=== PATIENT | female | born 1940 | race Caucasian/White ===

== ENCOUNTER → 2017-09-09 | Outpatient (CLI) | payer MEDICARE | LOC: COL.PUL 13:00 | DX: R06.02 Shortness of breath (principal); Z87.891 Personal history of nicotine dependence ==

== ENCOUNTER 2017-09-15 10:59 | Day surgery (SDC) | payer MEDICARE ==
[~2017-09-15] VITALS: Ht 177.8 cm; Wt 66.2 kg
[2017-09-15] VITALS (7 sets, daily range): BP systolic 109–133; BP diastolic 51–72; PULSE 60–71; TEMP 97.5–97.6
[2017-09-15 11:40] LABS: HEMATOCRIT 39.6 % (37.0-47.0); MEAN CELL VOLUME 92 fl (80.0-100.0); MEAN CORPUSCULAR HEMOGLOBIN 30 pg (27.0-31.0); MEAN CORPUSCULAR HGB CONC 33 g/dl (33.0-37.0); MEAN PLATELET VOLUME 11.2 fl (7.4-10.4); PLATELET COUNT 229 K/mm3 (130-400); REDCELL DISTRIBUTION WIDTH-CV 14.8 % (11.5-14.5)
[2017-09-15 11:44] LABS: INR 2.4 (0.8-3.0); PROTHROMBIN TIME 27.4 SECONDS (9.7-12.8)
[2017-09-15 11:50] LABS: CALCIUM 9.9 mg/dL (8.4-10.2); CREATININE, serum 1.1 mg/dL (0.52-1.25); POTASSIUM 3.4 mmol/L (3.4-5.0)
[2017-09-15] MEDS ORDERED: GLUCOSAMINE & C1 TAB PO (12:02)
[2017-09-15] MEDS ORDERED: VITAMIN C500 MG PO (12:03)
[2017-09-15] MEDS ORDERED: OYSTERCAL-D 5001 TAB PO (12:04)
[2017-09-15] MEDS ORDERED: DUO-KAPS1 CAP PO (12:05)
[2017-09-15] MEDS ORDERED: EPA FISH OIL1 SGL PO (12:05)
[2017-09-15] MEDS ORDERED: SOYA LECITHIN1200 MG PO (12:06)
[2017-09-15] MEDS ORDERED: NATURAL E400 IU PO (12:08)
[2017-09-15] MEDS ORDERED: VITAMIN B-6100 MG PO (12:09)
[2017-09-15] MEDS ORDERED: B-121000 MCG PO (12:10)
[2017-09-15] MEDS ORDERED: PHARMASSURE ZIN50 MG PO (12:10)
[2017-09-15] MEDS ORDERED: MASON NATURAL2000 IU PO (12:11)
[2017-09-15] MEDS ORDERED: ECHINACEA400 MG PO (12:12)
[2017-09-15] MEDS ORDERED: ORIGANUM OIL 1 M1 ML PO (12:13)
[2017-09-15 12:20] LABS: THYROID STIMULATING HORMONE 1.12 uIU/mL (0.465-4.680)
[2017-09-15] MEDS ORDERED: NATURAL POTASS595 MG PO (12:37)
[2017-09-15] MEDS ORDERED: ZANAFLEX 4MG TAB4 MG PO (12:37)
[2017-09-15] MEDS ORDERED: NORVASC 10MG10 MG PO (12:38)
[2017-09-15] MEDS ORDERED: COREG 25MG25 MG/TAB PO (12:38)
[2017-09-15] MEDS ORDERED: LOTENSIN20 MG PO (12:39)
[2017-09-15] MEDS ORDERED: HCTZ 25MG TAB25 MG PO (12:39)
[2017-09-15] MEDS ORDERED: VALIUM 5MG T5 MG/TAB PO (12:39)
[2017-09-15] MEDS ORDERED: XARELTO20 MG PO (12:40)
[2017-09-15] MEDS ORDERED: FLONASE SENSIM9.9 ML NS (12:40)
[2017-09-15] MEDS ORDERED: LASIX 20MG TABL20 MG PO (12:41)
[2017-09-15] MEDS ORDERED: CORDARONE200 MG/TAB PO (16:41)
[2017-09-15] MEDS ORDERED: PACERONE400 MG PO (16:41)
== END 2017-09-15 17:46 | disposition home or self-care (01) ==
LOC: COL.CAR 10:59
PROVIDERS: Internal Medicine Interventional Cardiology
DX: I48.0 Paroxysmal atrial fibrillation (principal); I10 Essential (primary) hypertension; R60.0 Localized edema; E78.5 Hyperlipidemia, unspecified; I25.10 Atherosclerotic heart disease of native coronary artery without angina pectoris; Z88.2 Allergy status to sulfonamides; Z88.5 Allergy status to narcotic agent; Z79.01 Long term (current) use of anticoagulants; Z79.51 Long term (current) use of inhaled steroids; Z95.0 Presence of cardiac pacemaker; Z87.891 Personal history of nicotine dependence
CPT/HCPCS: J2704

== ENCOUNTER 2018-03-30 13:43 | Observation (INO) | payer MEDICARE | END 2018-04-01 12:45 | disposition home or self-care (01) | LOC: MEDICAL 13:43 | PROVIDERS: ADMIT Internal Medicine Interventional Cardiology | DX: I11.0 Hypertensive heart disease with heart failure (principal); I50.30 Unspecified diastolic (congestive) heart failure; D50.0 Iron deficiency anemia secondary to blood loss (chronic); I48.0 Paroxysmal atrial fibrillation; Z79.899 Other long term (current) drug therapy; I08.1 Rheumatic disorders of both mitral and tricuspid valves; Z95.0 Presence of cardiac pacemaker; J44.9 Chronic obstructive pulmonary disease, unspecified; E78.5 Hyperlipidemia, unspecified; I25.10 Atherosclerotic heart disease of native coronary artery without angina pectoris; Z82.49 Family history of ischemic heart disease and other diseases of the circulatory system ==

== ENCOUNTER 2019-10-27 11:45 | Inpatient (IN) | payer MEDICARE ==
[~2019-10-27] VITALS: Ht 147.3 cm; Wt 72.3 kg
[2019-10-27] VITALS (11 sets, daily range): BP systolic 90–132; BP diastolic 32–70; PULSE 60–117; TEMP 97.6–99.2
[~2019-10-27 11:45] MED LIST: B-121000 MCG PO; CORDARONE200 MG/TAB PO; COREG 25MG25 MG/TAB PO; DUO-KAPS1 CAP PO; ECHINACEA400 MG PO; EPA FISH OIL1 SGL PO; FERROUS GL325 MG/TAB PO; FLONASE SENSIM9.9 ML NS; GLUCOSAMINE & C1 TAB PO; HCTZ 25MG TAB25 MG PO; LASIX 20MG TABL20 MG PO; LOTENSIN20 MG PO; MASON NATURAL2000 IU PO; NATURAL E400 IU PO; NATURAL POTASS595 MG PO; NORVASC 10MG10 MG PO; ORIGANUM OIL 1 M1 ML PO; OYSTERCAL-D 5001 TAB PO; PACERONE400 MG PO; PHARMASSURE ZIN50 MG PO; SOYA LECITHIN1200 MG PO; VALIUM 5MG T5 MG/TAB PO; VITAMIN B-6100 MG PO; VITAMIN C500 MG PO; XARELTO20 MG PO; ZANAFLEX 4MG TAB4 MG PO
[2019-10-27] MEDS ORDERED: DEMADEX 20MG20 M1 PO (14:12)
--- NOTE | 2019-10-27 15:00 | NUR ---
Assessment completed, alert/oriented, vital signs stable/ slightly elevated temp at 99.2, patient has constant 7/10 pain to left buttock which is where abscess is located, areas is red/swollen and warm to touch, no open areas or drainage noted, heart irregular/ Hx of a.fib, lungs CTA/ no resp.difficulty, notified hospitalist of her arrival to the floor, also notified, patient has INT that was placed to left wrist in [facility]
--- NOTE | 2019-10-27 15:50 | NUR ---
Vancomycin Initial Dosing Pharmacy Note Ordering provider: Leonel Chinchilla MD Indication/duration: Skin/Soft tissue infection, 7 days LABS: SCr 1.7, CrCl~21, GFR 29 Recommendation: Will start Vancomcyin 1 gm IV q24h. Pharmacy will continue to closely monitor and check a Vancomycin trough on 10/30/19. Maintenance dose: 1 gram every 24 hours Trough goal: 10-15 ug/mL
--- NOTE | 2019-10-27 16:35 | NUR ---
Patient is going down to OR at this time for IND of left buttock abscess, consent is signed, discussed plan of care with and son over the phone
--- NOTE | 2019-10-27 18:15 | NUR ---
Patient arrived back to room 346 from PACU at this time, she is drowsy but alert/oriented, vital signs stable, pain free at this time, will continue to monitor, she is taking sips of water without any issues
--- NOTE | 2019-10-27 19:17 | NUR ---
patient continues to do well post-op, she is taking PO intake and pain is controlled, vitals remain stable, report given to night nurse Sadaf at the bedside
--- NOTE | 2019-10-27 20:00 | NUR ---
ASSISTED TO BSC FOR VOID. DRSG TO LEFT BUTTOCK REMOVED, DRAINAGE PRESENT. PACKING INTACT TO WOUND. REPLACED DRSG OF 4X4'S AND ABD WHEN PATIENT STANDS UP. PLACED ATTENDS ON PATIENT FOR OCC INCONTINENCE OF URINE. LEFT BUTTOCK RED AND EDEMATOUS. ONCE BACK TO BED PT TAKES TYLENOL FOR COMFORT. DRINKING ICE WATER AND OJ. DOES NOT WANT FOOD AT THIS TIME.
--- NOTE | 2019-10-28 00:05 | NUR ---
ASSISTED TO BSC WITH ONE ASSIST AND WALKER, TRANSFERS BETTER THIS TIME. DRSG TO LEFT BUTTOCK CHANGED, PACKING LEFT IN PLACE, REPLACED 4X4'S AND ABD. BACK TO BED AFTER VOIDING. IVF AND IV ANTIBIOTIC INFUSING.
[2019-10-28 00:45] VITALS: BP 99/41; PULSE 67; TEMP 98.5
[2019-10-28 04:14] VITALS: BP 107/43; PULSE 59; TEMP 97.6
--- NOTE | 2019-10-28 05:40 | NUR ---
ASSISTED TO BSC WITH WALKER AND ONE ASSIST. DRESSING TO LEFT BUTTOCK WITH MODERATE SEROSANGUNIOUS DRAINAGE, REMOVED AND CHANGED AFTER PT FINISHED VOIDING. BACK TO BED WITH ASSIST.
[2019-10-28 06:26] LABS: MEAN CELL VOLUME 99 fl (80.0-100.0); MEAN CORPUSCULAR HGB CONC 33 g/dl (33.0-37.0); MEAN PLATELET VOLUME 12.1 fl (7.4-10.4); PLATELET COUNT 228 K/mm3 (130-400); RED BLOOD COUNT 2.84 M/mm3 (4.10-5.30); REDCELL DISTRIBUTION WIDTH-CV 15.7 % (11.5-14.5)
[2019-10-28 06:47] LABS: HEMOGLOBIN 9.1 g/dl (12.5-16.0); MEAN CORPUSCULAR HEMOGLOBIN 32 pg (27.0-31.0)
[2019-10-28 06:50] LABS: CALCIUM 8.4 mg/dL (8.4-10.2); CREATININE, serum 1.59 (0.52-1.25); MAGNESIUM 2.4 mg/dL (1.6-2.3); POTASSIUM 3.8 mmol/L (3.4-5.0)
[2019-10-28 07:35] LABS: BAND 23 % (0-10); LYMPHOCYTE 5 % (20.0-51.0); METAMYELOCYTE 2 % (0-0); NEUTROPHILS 70 % (42.0-75.2); PLATELET ESTIMATE NORMAL (NORMAL)
[2019-10-28 08:17] VITALS: BP 115/39; PULSE 59; TEMP 98.7
--- NOTE | 2019-10-28 10:03 | NUR ---
SW met with patient to complete intake. Patient provides that she lives in [place], [place] with her Rohith [phone]. Patient states that she utilizes a 4 wheel walker at home. One that she can sit down and rest on when she needs to. Patient provides that she is independing with ADL's, her PCP is Dr. Casie Ventura, pharmacy is [facility], and tyhat she is able to afford her medications at this time. Patient provides that she has a document at her home that states her Rohith is her DPOA-HC. Patient states that she will ask to bring in document, but does not know if he will be able to find it. Patient states that she already has home health services set up for PT/OT that will be coming to her home 2 times per month. She could not remember the name of the agency, but provides it could be [facility]. SW provided that the SW team will follow with her upon discharge to ensure updates are sent to the agency. Patient provides that she does not have any concerns on DCing home when that time comes. SW will continue to follow.
--- NOTE | 2019-10-28 11:30 | NUR ---
Assessment completed, alert/oriented, vital signs stable/ afebrile, pain /10 but is only using tylenol to treat, lungs are a little diminished today and patient feels she is a little 'raspy' today / CXR ordered by hospitalist to eval lungs, heart RRR, distal pulses are palapble, has been by evalaute wound/ we have changed dressing, she has been up ambulating, tolerating regular diet well, she is now up with PT and doing well, I ahve spoke to on the phone
[2019-10-28 12:07] VITALS: BP 108/44; PULSE 62; TEMP 98.7
[2019-10-28 17:08] VITALS: BP 112/52; PULSE 68; TEMP 98.4
[2019-10-28 19:20] VITALS: BP 103/54; PULSE 60; TEMP 98.5
--- NOTE | 2019-10-28 22:48 | NUR ---
UP TO BATHROOM WITH ASSIST AND WALKER. HAS SMALL SOFT STOOL AND VOIDS. BRUSHES TEETH AND ASSISTED TO BED. SL TO LEFT FOREARM WITHOUT REDNESS OR SWELLING. DRESSING CHANGED TO LEFT BUTTOCK, MODERATE DRAINAGE NOTED, BUTTOCK LESS RED BUT REMAINS HARD TO TOUCH.
--- NOTE | 2019-10-29 | NUR ---
PT REQUESTS ZANAFLEX FOR MUSCLE ACHE. DOSE GIVEN. IV ANTIBIOTIC CONNECTED AND HEPARIN SQ GIVEN.
[2019-10-29 00:10] VITALS: BP 96/49; PULSE 68; TEMP 97.6
[2019-10-29 03:16] VITALS: BP 106/60; PULSE 58; TEMP 98.1
--- NOTE | 2019-10-29 03:18 | NUR ---
Up to bathroom, voids and back to bed. Drsg to left buttock changed.
[2019-10-29 07:24] VITALS: BP 107/37; PULSE 64; TEMP 97.8
--- NOTE | 2019-10-29 08:50 | NUR ---
Sitting up in bed. Alert and oriented x4. Patient had been up to bathroom and some of the dressing had come out of her I&D site to left buttocks. Rates pain Rates pain in left buttocks 2/10, describes as tender. Patient denies any additional needs or concerns at this time.
[2019-10-29 09:23] LABS: MEAN CELL VOLUME 99 fl (80.0-100.0); MEAN CORPUSCULAR HGB CONC 32 g/dl (33.0-37.0); PLATELET COUNT 273 K/mm3 (130-400); RED BLOOD COUNT 3.08 M/mm3 (4.10-5.30); REDCELL DISTRIBUTION WIDTH-CV 15.7 % (11.5-14.5)
[2019-10-29 09:27] LABS: CALCIUM 8.9 mg/dL (8.4-10.2); CREATININE, serum 1.69 (0.52-1.25)
[2019-10-29 09:42] LABS: HEMATOCRIT 30.5 % (37.0-47.0); HEMOGLOBIN 9.8 g/dl (12.5-16.0); MEAN CORPUSCULAR HEMOGLOBIN 32 pg (27.0-31.0)
--- NOTE | 2019-10-29 10:25 | NUR ---
Gambling Counsellor contacted Naomi from [facility]. She reports they received the original referral from [facility]. They can accept the patient for [facility]. HANNAH faxed updates to Naomi. Will continue to monitor.
--- NOTE | 2019-10-29 10:50 | NUR ---
Hack Driver attended clinical rounds with the team. The patient is currently on IV antibiotics. Will continue to follow.
[2019-10-29 11:02] LABS: BAND 1 % (0-10); LYMPHOCYTE 5 % (20.0-51.0); METAMYELOCYTE 1 % (0-0); NEUTROPHILS 88 % (42.0-75.2)
[2019-10-29 11:04] LABS: BURR CELLS 1+; PLATELET ESTIMATE NORMAL (NORMAL)
[2019-10-29 11:06] LABS: TEAR DROP CELLS 1+
[2019-10-29 11:13] VITALS: BP 114/44; PULSE 64; TEMP 97.6
[2019-10-29 16:15] VITALS: BP 129/60; PULSE 56; TEMP 97.7
--- NOTE | 2019-10-29 17:05 | NUR ---
Sitting up in chair watching TV. was at bedside but leaving for the night. Denies pain at this time, Denies additional needs.
[2019-10-29 20:59] VITALS: BP 107/44; PULSE 65; TEMP 98
--- NOTE | 2019-10-29 22:30 | NUR ---
ASSISTED TO BATHROOM, DRSG TO LEFT BUTTOCK REMOVED. HAS PURULENT DRAINAGE COMING FROM WOUND, ADILSON HAVE BEEN REMOVED. BUTTOCK IS SIGNIFICANTLY LESS RED, STILL HAS INDURATED AREA FROM LOWER LEFT BUTTOCK INTO POSTERIOR LEFT INNER THIGH. SL TO LEFT FOREARM WITHOUT REDNESS OR SWELLING. SCATTERED BRUISES TO ABD FROM HEPARIN INJECTIONS. BACK TO BED AFTER VOIDING, NEW DRSG OF 4X4'S AND ABD APPLIED TO LEFT BUTTOCK WOUND.
[2019-10-30] VITALS (7 sets, daily range): BP systolic 101–153; BP diastolic 37–46; PULSE 60–75; TEMP 97.4–98.8
--- NOTE | 2019-10-30 03:45 | NUR ---
PT UP TO BATHROOM, VOIDS AND HAS SMALL STOOL. DRESSING REPLACED TO LEFT BUTTOCK WOUND, WAS ABLE TO EXPRESS MODERATE AMOUNT OF PURULENT DRAINAGE FROM WOUND. REMAINS ON SLOW IV ANTIBIOTIC.
--- NOTE | 2019-10-30 06:00 | NUR ---
PT UP TO BATHROOM, DRSG WITH PURULENT DRAINAGE. VOIDS 300CC, NEW 4X4'S AND ABD PLACED OVER LEFT BUTTOCK WOUND. BACK TO BED.
[2019-10-30 09:02] LABS: HEMOGLOBIN 10.1 g/dl (12.5-16.0); MEAN CELL VOLUME 100 fl (80.0-100.0); MEAN CORPUSCULAR HEMOGLOBIN 32 pg (27.0-31.0); MEAN CORPUSCULAR HGB CONC 32 g/dl (33.0-37.0); MEAN PLATELET VOLUME 11.9 fl (7.4-10.4); PLATELET COUNT 308 K/mm3 (130-400); RED BLOOD COUNT 3.14 M/mm3 (4.10-5.30); REDCELL DISTRIBUTION WIDTH-CV 15.8 % (11.5-14.5)
[2019-10-30 09:13] LABS: HEMATOCRIT 31.3 % (37.0-47.0)
[2019-10-30 09:22] LABS: CALCIUM 8.9 mg/dL (8.4-10.2); CREATININE, serum 1.53 (0.52-1.25)
[2019-10-30 10:12] LABS: BAND 17 % (0-10); BASOPHIL 1 % (0-2); EOSINOPHIL 1 % (0-4); LYMPHOCYTE 5 % (20.0-51.0); PLATELET ESTIMATE NORMAL (NORMAL)
[2019-10-30 10:13] LABS: NEUTROPHILS 72 % (42.0-75.2)
--- NOTE | 2019-10-30 11:00 | NUR ---
First visit from the sales support manager. No needs right now.
--- NOTE | 2019-10-30 11:42 | NUR ---
Patient ambulating in [place] with PT
--- NOTE | 2019-10-30 19:45 | NUR ---
Patient has done well throughout the day. Continues to have purulent drainge from abcess site. Dressing changed throughout the day. INT to left forarm without complications. Has been up to restroom multiple times throughout the day. Spouse at bedside this afternoon. Denies further needs at this time. Will report off to senior java developer.
[2019-10-31 03:52] VITALS: BP 134/37; PULSE 62; TEMP 98.3
--- NOTE | 2019-10-31 05:26 | NUR ---
Patient has rested well throughout the night. Denies pain. Ambulates to the restroom with 1 assist from staff. Dressing appears to have fallen off in the night. New dressing applied to left buttock. New dressing consists of 4x4 gauze and ABD pad and patient has mesh panties on top of that. Small amount of purulent drainage noted to wound. INT to left forearm. Patient continues to have bilateral lower extremity edema. Patient is alert and oriented and pleasant with staff. Continues on IV antibiotics as prescribed. Will continue to monitor patient.
--- NOTE | 2019-10-31 06:50 | NUR ---
Assist patient into bathroom. Gait slow but steady. Remove dressing from left buttocks. Purulent discharge noted on dressing. Left buttcock red, tender when touched. Patient voids and has small BM. Assisted in pericare, apply new abd and patient assisted into chair in room. Breakfast tray set up for patient. Patient denies pain. Denies any additional needs or concerns.
[2019-10-31 08:07] VITALS: BP 136/41; PULSE 64; TEMP 97.5
[2019-10-31 09:14] LABS: HEMOGLOBIN 10.6 g/dl (12.5-16.0); MEAN CELL VOLUME 98 fl (80.0-100.0); MEAN CORPUSCULAR HEMOGLOBIN 32 pg (27.0-31.0); MEAN CORPUSCULAR HGB CONC 33 g/dl (33.0-37.0); MEAN PLATELET VOLUME 11.5 fl (7.4-10.4); PLATELET COUNT 373 K/mm3 (130-400); RED BLOOD COUNT 3.33 M/mm3 (4.10-5.30); REDCELL DISTRIBUTION WIDTH-CV 15.5 % (11.5-14.5)
[2019-10-31 09:19] LABS: HEMATOCRIT 32.6 % (37.0-47.0)
[2019-10-31 09:28] LABS: CALCIUM 9.1 mg/dL (8.4-10.2); CREATININE, serum 1.23 (0.52-1.25); POTASSIUM 3.9 mmol/L (3.4-5.0)
[2019-10-31 10:09] LABS: BAND 9 % (0-10); EOSINOPHIL 2 % (0-4); LYMPHOCYTE 12 % (20.0-51.0); METAMYELOCYTE 3 % (0-0); MYELOCYTE 3 % (0-0); NEUTROPHILS 69 % (42.0-75.2); PLATELET ESTIMATE NORMAL (NORMAL)
[2019-10-31 11:16] VITALS: BP 129/38; PULSE 66; TEMP 97.3
--- NOTE | 2019-10-31 11:29 | NUR ---
Sitting up in chair watching TV and looking at ipad. Denies pain or any needs or concerns at this time.
--- NOTE | 2019-10-31 15:07 | NUR ---
Direct Casting Operator met with the patient to revisit the discharge plan. The patient plans to return home with [facility]. SW discussed options for IV antibiotics, if needed. She is hoping they will all be oral at discharge. She has no other questions or concerns at this time.
[2019-10-31 15:59] VITALS: BP 129/55; PULSE 65; TEMP 97.5
--- NOTE | 2019-10-31 16:18 | NUR ---
Delivery Room Supervisor faxed updates to [employer] MAKE UP OPERATOR.
--- NOTE | 2019-10-31 17:03 | NUR ---
Sitting in chair with eyes open. Mimimal pain in buttocks at this time. Patient says that she is tired from all the activity that she has done today. Patient denies needs at this time.
[2019-10-31 19:35] VITALS: BP 128/37; PULSE 61; TEMP 98.3
[2019-10-31 20:00] VITALS: BP 136/52
--- NOTE | 2019-10-31 20:00 | NUR ---
Report received, assumed care for maintenance technician 2nd shift. Assessment complete. VS stable. A&Ox3. Denies pain/nausea/shortness of breath. Dressing to left buttock-wet/dry-ABD covering. INT to left forearm flushes without difficulty. Plan of care discussed for this shift to include calling for needs/pain meds. Verbalizes understanding/denies questions/cocnerns. Call light in reach. Will monitor.
[2019-11-01] VITALS (8 sets, daily range): BP systolic 128–152; BP diastolic 31–52; PULSE 60–66; TEMP 97.2–98
--- NOTE | 2019-11-01 04:25 | NUR ---
Rested off and on this shift. Denied need for pain medications. Denies nausea/shortness of breath. VS remained stable. Tolerating PO. VOiding without difficulty. Left buttock wound with purulent drainage to ABD. Denies current needs. Call light in reach. Will monitor.
[2019-11-01 08:02] LABS: PATHOLOGY DIFF REVIEW OK
[2019-11-01 08:22] LABS: HEMOGLOBIN 10.1 g/dl (12.5-16.0); MEAN CELL VOLUME 98 fl (80.0-100.0); MEAN CORPUSCULAR HEMOGLOBIN 32 pg (27.0-31.0); MEAN CORPUSCULAR HGB CONC 33 g/dl (33.0-37.0); MEAN PLATELET VOLUME 11.6 fl (7.4-10.4); PLATELET COUNT 360 K/mm3 (130-400); RED BLOOD COUNT 3.16 M/mm3 (4.10-5.30); REDCELL DISTRIBUTION WIDTH-CV 15.3 % (11.5-14.5)
[2019-11-01 08:36] LABS: HEMATOCRIT 30.9 % (37.0-47.0)
[2019-11-01 08:47] LABS: C-REACTIVE PROTEIN 7.2 mg/dL (0.0-0.9); CALCIUM 8.8 mg/dL (8.4-10.2); CREATININE, serum 1.06 (0.52-1.25); MAGNESIUM 2.2 mg/dL (1.6-2.3); POTASSIUM 3.3 mmol/L (3.4-5.0)
--- NOTE | 2019-11-01 10:01 | NUR ---
Dock Operations Supervisor attended clinical rounds with the team. The patient will be needing IV antibiotics at discharge. Ceftriaxone 2g 1 x daily. The patient will need to have weekly labs drawn. The patient states she will have her educated so he can administer the IV antibiotics at home. After rounds, HANNAH contacted [facility] to provide an update. Naomi states [facility] can draw labs in the home. HANNAH met with the patient to discuss IV infusion companies. She would like to discuss this with her when he visits this day before making a decision. Will continue to monitor.
[2019-11-01 10:02] LABS: BAND 4 % (0-10); EOSINOPHIL 1 % (0-4); LYMPHOCYTE 5 % (20.0-51.0); METAMYELOCYTE 3 % (0-0); NEUTROPHILS 85 % (42.0-75.2)
[2019-11-01 10:03] LABS: PLATELET ESTIMATE NORMAL (NORMAL)
--- NOTE | 2019-11-01 14:38 | NUR ---
Sitting up in recliner talking with . Denies pain or any additional needs at this time.
--- NOTE | 2019-11-01 14:44 | NUR ---
Patient and in agreement with outpatient antibiotics at [facility]. The patient would like 1 p.m. as administration time.
--- NOTE | 2019-11-01 15:37 | NUR ---
Earth Science Technician met with the patient to review the discharge plan. The patient and the would like to go to the [facility] to have their IV antibiotic administered, weekly PICC dressing changes, and weekly labs. They would like it to be at 1300. HANNAH contacted Amaris with [facility]. They will be able to accomodate the patient for administration at 1300. HANNAH faxed HNP, facesheet, medication list and PICC note to Amaris. HANNAH to follow up with orders for the above plus medication order on 11/01. HANNAH [facility]. She reports that Medicare may not cover [facility] since they may consider it a duplication of services. HANNAH to inform the patient.
--- NOTE | 2019-11-01 16:29 | NUR ---
Venetian Blind Cleaner met with the patient to discuss the discharge plan. HANNAH provided udpates to the patient. The patient is needing ABD pads for her wound. HANNAH printed a resource for the patient. They are available at [facility]. She may be agreeable to doing some OP PT. HANNAH to discuss this with the team. Will continue to monitor.
--- NOTE | 2019-11-01 21:15 | NUR ---
Pt ambulated to the restroom well. pt dressing was changed at this time. Pt has her call light within reach and her bed is in lowest position.
[2019-11-02] VITALS: BP 139/37; PULSE 62; TEMP 98.1
--- NOTE | 2019-11-02 01:59 | NUR ---
Pt is currently sleeping in bed. Pt has her call light within reach.
[2019-11-02 03:53] VITALS: BP 144/55; PULSE 60; TEMP 98.8
--- NOTE | 2019-11-02 04:05 | NUR ---
Pt has slept well during the night.Pt dressing was changed after each bathroom trip. Pt has had a purulent drainage on the ABD dressing. Pt has tolerated the changings well. The area has redness around it. Pt is back in bed and has her call light within reach.
[2019-11-02 07:22] LABS: MEAN CELL VOLUME 98 fl (80.0-100.0); MEAN CORPUSCULAR HGB CONC 32 g/dl (33.0-37.0); MEAN PLATELET VOLUME 11.6 fl (7.4-10.4); PLATELET COUNT 337 K/mm3 (130-400); RED BLOOD COUNT 2.96 M/mm3 (4.10-5.30); REDCELL DISTRIBUTION WIDTH-CV 15.4 % (11.5-14.5)
[2019-11-02 07:24] LABS: HEMATOCRIT 29.1 % (37.0-47.0); HEMOGLOBIN 9.4 g/dl (12.5-16.0); MEAN CORPUSCULAR HEMOGLOBIN 32 pg (27.0-31.0)
[2019-11-02 07:30] LABS: CALCIUM 8.7 mg/dL (8.4-10.2); CREATININE, serum 0.9 (0.52-1.25); POTASSIUM 3.6 mmol/L (3.4-5.0)
[2019-11-02 07:58] VITALS: BP 136/41; PULSE 60; TEMP 97.8
--- NOTE | 2019-11-02 08:00 | NUR ---
Patient resting in bed eating breakfast at this time. Patient is alert and oriented, answers questions appropriately. Patient ambulates with walker and SBA to bathroom where she is continent of bladder and bowel. Abcess site has ABD in place per order, dressing has a small amount of serous drainage. Patient has a student nurse today, explained that AM medications will be given by the student. Patient agreed and verbalized understanding. Call light within reach.
[2019-11-02 08:14] VITALS: BP 131/44; PULSE 65
[2019-11-02 08:26] LABS: BAND 11 % (0-10); EOSINOPHIL 2 % (0-4); LYMPHOCYTE 6 % (20.0-51.0); NEUTROPHILS 72 % (42.0-75.2); PLATELET ESTIMATE NORMAL (NORMAL)
[2019-11-02] MEDS ORDERED: ROCEPHIN 2GM VIAL21 IV (10:14)
--- NOTE | 2019-11-02 11:30 | NUR ---
Patient requested to speak with Infectious Disease doctor to get clarification about usp anditibiotic use. Dr. Ferrari spoke with the patient and addressed her concerns. Patient requests that we wait to do discharge teaching until her gets here, told patient she could call him after her last antibiotic was finished and discharge teaching can be conducted with both of them present. Patient verbalizes understanding and denies further needs, call light within reach.
[2019-11-02 12:23] VITALS: BP 129/46; PULSE 64; TEMP 97.8
--- NOTE | 2019-11-02 14:30 | NUR ---
Discharge teaching completed. Discussed discharge instructions, follow up appointments, outpatient antibiotics, dressing changes, and PICC line care. Questions asked and answered. Patient dressed with assistance. Patient and confirmed all belongings are gathered and patient was escorted to ED entrance where she entered a private vehicle.
== END 2019-11-02 14:30 | disposition home or self-care (01) | DRG 853 ==
LOC: MEDICAL 11:45 → SURG 13:36
PROVIDERS: Hospitalist; Physician Assistant; ADMIT Internal Medicine
PROC: 0J990ZZ Drainage of Buttock Subcutaneous Tissue and Fascia, Open Approach (ICD-10-PCS; 2019-10-27)
PROC: 02HV33Z Insertion of Infusion Device into Superior Vena Cava, Percutaneous Approach (ICD-10-PCS; principal; 2019-11-01)
DX: A41.01 Sepsis due to Methicillin susceptible Staphylococcus aureus (principal); I50.33 Acute on chronic diastolic (congestive) heart failure; L02.31 Cutaneous abscess of buttock; I13.0 Hypertensive heart and chronic kidney disease with heart failure and stage 1 through stage 4 chronic kidney disease, or unspecified chronic kidney disease; L03.317 Cellulitis of buttock; N17.9 Acute kidney failure, unspecified; N18.3 Chronic kidney disease, stage 3 (moderate); I48.91 Unspecified atrial fibrillation; I34.0 Nonrheumatic mitral (valve) insufficiency; H35.30 Unspecified macular degeneration; Z95.0 Presence of cardiac pacemaker
CPT/HCPCS: 99222-AI; 99232-AI; 99233-AI; 99239; C1751; J0690; J0696; J1100; J1644; J1940; J2405; J2543; J2704; J3010; J3370; J3480; J7030; J7050

== ENCOUNTER → 2020-04-03 | Outpatient (CLI) | payer MEDICARE ==
[~2020-04-03] MED LIST changes: +DEMADEX 20MG20 M1 PO; +ROCEPHIN 2GM VIAL21 IV
== END ==
LOC: ZCOL.LAB 10:19
DX: S31.829D Unspecified open wound of left buttock, subsequent encounter (principal)

== ENCOUNTER → 2020-04-30 | Outpatient (CLI) | payer MEDICARE | LOC: ZCOL.LAB 16:37 | DX: S31.829D Unspecified open wound of left buttock, subsequent encounter (principal) ==

== ENCOUNTER → 2020-06-25 | Outpatient (CLI) | payer MEDICARE | LOC: ZCOL.LAB 16:26 | DX: T14.90XD Injury, unspecified, subsequent encounter (principal) ==

== ENCOUNTER → 2020-08-20 | Outpatient (CLI) | payer MEDICARE | LOC: ZCOL.LAB 16:26 | DX: T14.90XD Injury, unspecified, subsequent encounter (principal) ==